=== PATIENT | female | born 1950 | race Caucasian/White ===

== ENCOUNTER 2022-01-09 10:10 | Emergency (ER) | payer MEDICARE ==
[~2022-01-09] VITALS: Ht 172.7 cm; Wt 103.0 kg
[2022-01-09] VITALS (13 sets, daily range): BP systolic 105–152; BP diastolic 52–65
[~2022-01-09 10:10] MED LIST: AMOXICILLIN875 MG OR; AUGMENTIN875TAB PO; AZITHROMYCIN250 MG PO; CALCIUM500 MG/D PO; CIPRO500 MG PO; CIPROFLOXACN500 MG PO; DIOVAN160 MG PO; EVISTA60 MG PO; FISH OIL1400 MG; FISH OIL1400 MG PO; LOSARTAN POT50 MG PO; METOPROLOL50 M1 PO; MILK THISTLE250 MG PO; NAPROSYN500 MG PO; OMEPRAZOLE20 M2 PO; PREDNISONE20 MG PO; PYRIDIUM200 MG PO; SPIRONOLACT50 M1 PO; TESSALON PER100 MG PO; VIT C/BIOFLV1000 MG PO; VIT E COMPLX400 UNIT PO; VITAMIN D2000 UNI1; VITAMIN D2000 UNI2 PO
[2022-01-09] MEDS ORDERED: TORSEMIDE20 M1 PO (10:32)
[2022-01-09] MEDS ORDERED: VERAPAMIL120 M1 PO (10:33)
[2022-01-09 11:36] LABS: ALKALINE PHOSPHATASE 56 u/l (38-126); BILIRUBIN, TOTAL 0.6 mg/dL (0.0-1.4); CARBON DIOXIDE 24 mmol/l (22-30); CHLORIDE 99 mmol/l (95-108); CREATININE 1.7 mg/dL (0.5-1.0); GFR FOR AFR.AMER. 36 ML/MIN (>=60 (CALC)); GFR OTHER RACES 30 ML/MIN (>=60 (CALC)); POTASSIUM 4.8 mmol/l (3.5-5.1); SGOT/AST 26 u/l (9-36); TOTAL PROTEIN 7.5 g/dL (6.3-8.2)
[2022-01-09 11:38] LABS: ALBUMIN 4.4 g/dL (3.2-5.0); ANION GAP 16 (6-22 (CALC)); BUN 37 mg/dL (8-23); BUN/CREATININE RATIO 22 (12-20 (CALC)); SODIUM 134 mmol/l (137-146)
[2022-01-09 11:40] LABS: HEMATOCRIT 37.1 % (37.0-47.0); HEMOGLOBIN 12.4 g/dl (12.0-16.0); IMMATURE GRANULOCYTES 0.1 % (0.0-5.0); MEAN CELL VOLUME 97.9 fL CALC (80.0-100.0); MEAN CORPUSCULAR HGB 32.7 pG CALC (26.0-32.0); MEAN CORPUSCULAR HGB CONC 33.4 g/dL CAL (32.0-36.0); NEUT# 5.39 thou/uL (2.00-7.15); RED BLOOD COUNT 3.79 mill/uL (4.20-5.60); RED CELL DISTRI WIDTH 11.9 % (11.5-15.5)
[2022-01-09 12:00] LABS: URINE BILIRUBIN - DIPSTICK NEGATIVE (NEGATIVE); URINE BLOOD DIPSTICK NEGATIVE (NEGATIVE); URINE COLOR YELLOW; URINE GLUCOSE - DIPSTICK NEGATIVE (NEGATIVE); URINE KETONE NEGATIVE (NEGATIVE); URINE LEUK ESTERASE NEGATIVE (NEGATIVE); URINE PROTEIN - DIPSTICK NEGATIVE (NEG-TRACE); URINE SPECIFIC GRAVITY <=1.005; URINE UROBILINOGEN - DIPSTICK 0.2 E.U./dL (0.2)
[2022-01-09 12:01] LABS: URINE NITRITE - DIPSTICK NEGATIVE (Negative)
[2022-01-09] MEDS ORDERED: TRAZODONE50 MG PO (13:34)
[2022-01-09] MEDS ORDERED: CEPHALEXIN500 M1 PO (13:34)
== END 2022-01-09 13:59 | disposition home or self-care (01) ==
LOC: ED 10:10
PROVIDERS: Family Medicine
DX: R10.11 Right upper quadrant pain (principal); R53.83 Other fatigue; S80.12XA Contusion of left lower leg, initial encounter; M17.11 Unilateral primary osteoarthritis, right knee; G47.00 Insomnia, unspecified; I11.0 Hypertensive heart disease with heart failure; I50.9 Heart failure, unspecified; E78.5 Hyperlipidemia, unspecified; W19.XXXA Unspecified fall, initial encounter; M79.662 Pain in left lower leg